=== PATIENT | male | born 1985 | race Two or more races ===

== ENCOUNTER 2021-03-30 23:48 | Emergency (ER) | payer OTHER ==
[~2021-03-30] VITALS: Ht 172.7 cm; Wt 77.1 kg
[2021-03-31] MEDS ORDERED: OLANZAPINE 5 MG TABLET PO ONE (00:30)
[2021-03-31] MEDS ORDERED: LORAZEPAM 1 MG TABLET PO ONE (00:30)
[2021-03-31] MEDS ORDERED: OLAN10TA3 PO (00:38)
[2021-03-31] MEDS ORDERED: LORA2TAB95 PO (00:38)
[2021-03-31] MEDS ORDERED: OLANZAPINE 5 MG TABLET ONE (00:38)
[2021-03-31] MEDS ORDERED: LORAZEPAM 1 MG TABLET ONE (00:38)
[2021-03-31 01:25] VITALS: BP 134/80
--- NOTE | 2021-03-31 01:25 | NUR ---
Patient discharged to home in stable condition. Written and verbal after care instructions given. Patient verbalizes understanding of instruction. RX given
== END 2021-03-31 01:26 | disposition home or self-care (01) ==
LOC: ER 23:53
DX: F15.129 Other stimulant abuse with intoxication, unspecified (principal); H92.02 Otalgia, left ear; Z79.899 Other long term (current) drug therapy